=== PATIENT | female | born 1985 | race Native Hawaiian/Other Pacific Islander ===

== ENCOUNTER 2018-06-04 18:19 | Outpatient (CLI) | payer OTHER | END 2018-06-04 18:54 | disposition short-term general hospital (02) | LOC: AMB 18:19 | DX: M79.651 Pain in right thigh (principal); V59.9XXA Occupant (driver) (passenger) of pick-up truck or van injured in unspecified traffic accident, initial encounter; Y93.89 Activity, other specified; Y92.89 Other specified places as the place of occurrence of the external cause | CPT/HCPCS: A0425; A0427 ==